=== PATIENT | male | born 1980 | race African-American/Black ===

== ENCOUNTER 2021-03-31 04:20 | Inpatient (IN) | payer MEDICAID, OTHER ==
[~2021-03-31] VITALS: Ht 185.4 cm; Wt 108.3 kg
[~2021-03-31 04:20] MED LIST: ALPR0.5T; IBU800T
[2021-03-31] MEDS ORDERED: SODIUM CHLORIDE 0.9% 1,000 ML IV ONE ×2 (07:00→08:30)
[2021-03-31] MEDS ORDERED: FAMOTIDINE (10MG/ML) 2ML VL IV ONE (07:15)
[2021-03-31 07:27] LABS: Basophils # (auto) 0 10 ^3/uL (0-0.2); Basophils % (auto) 0.7 % (0.0-2.0); Eosinophils # (auto) 0.1 10 ^3/uL (0-0.8); Eosinophils % (auto) 1.5 % (0.0-7.0); Hematocrit 40.4 % (41.0-53.0); Hemoglobin 14.1 g/dL (13.5-17.5); Lymphocytes # (auto) 1.9 10 ^3/uL (0.4-5.4); Lymphocytes % (auto) 41.3 % (10.0-50.0); Mean Corpuscular Hemoglobin 34.8 pg (28.0-32.0); Mean Corpuscular Hgb Conc. 34.9 g/dL (32.0-36.0); Mean Corpuscular Volume 99.6 fL (80.0-100.0); Monocytes # (auto) 0.6 10 ^3/uL (0-1.3); Monocytes % (auto) 13.9 % (0.0-12.0); Neutrophils % (auto) 42.6 % (37.0-80.0); Nucleated Red Blood Cells % 0.2 %; Red Blood Cells 4.05 10^6/uL (4.5-5.90); Red Cell Distribution Width 12.5 % (11.8-14.3); White Blood Cell 4.7 10^3/uL (4.4-10.8)
[2021-03-31 07:42] LABS: Calcium 8.8 mg/dL (8.5-10.1); Potassium 3.8 mmol/L (3.5-5.1)
[2021-03-31 07:45] LABS: Bilirubin, Total 0.5 mg/dL (0.2-1.0); Total Protein 8.1 g/dL (6.4-8.2)
[2021-03-31 07:55] LABS: Amphetamine Screen, Urine NEGATIVE (NEGATIVE); Barbiturate Scree,Urine NEGATIVE (NEGATIVE); Benzodiazephine Screen, Urine NEGATIVE (NEGATIVE); Cannabinoid Screen, Urine NEGATIVE (NEGATIVE); Cocaine Screen, Urine NEGATIVE (NEGATIVE); Opiate Scree,Urine NEGATIVE (NEGATIVE); Phencyclidine Screen, Urine NEGATIVE (NEGATIVE)
[2021-03-31 08:06] LABS: Urine Bacteria NONE SEEN /hpf (None Seen); Urine Blood Negative /uL (Negative); Urine Hyaline Cast FEW /lpf (0 - 2); Urine Mucus FEW (None Seen); Urine Specific Gravity 1.019 (1.001-1.035); Urine WBC 3 /hpf (0 - 3)
[2021-03-31] MEDS ORDERED: MORPHINE SULFATE 4 MG/ML SYR/VIAL ONE (08:20)
[2021-03-31] MEDS ORDERED: ONDANSETRON HCL 4 MG/2 ML VIAL IV ONE ×2 (08:30→10:45)
[2021-03-31] MEDS ORDERED: MORPHINE SULFATE 4 MG/ML SYR/VIAL IV ONE (08:30)
[2021-03-31 08:49] LABS: BUN/Creatinine Ratio 5.7
[2021-03-31] MEDS ORDERED: PANTOPRAZOLE 40 MG/10 ML VIAL INJ IV ONE (10:45)
[2021-03-31] MEDS ORDERED: MEROPENEM 1GM IVPB 100 ML IV ONE (10:45)
[2021-03-31] MEDS ORDERED: SODIUM CHLORIDE 0.9% 1,000 ML IV SCH (10:45)
[2021-03-31] MEDS ORDERED: MORPHINE SULFATE 4 MG/ML SYR/VIAL IV PRN (10:45)
[2021-03-31] MEDS ORDERED: LABETALOL HCL 5 MG/ML 4ML SYRINGE IV ONE (10:45)
[2021-03-31] MEDS ORDERED: MORPHINE SULFATE INJECTION 2 MG/ML SYRG IV PRN ×2 (10:45→11:00)
[2021-03-31] MEDS ORDERED: ONDANSETRON HCL 4 MG/2 ML VIAL IV PRN (10:45)
[2021-03-31] MEDS ORDERED: chlordiazePOXIDE HCL 25 MG CAP PO SCH (10:45)
[2021-03-31] MEDS ORDERED: LACTATED RINGER'S 1,000 ML IV ONE (10:45)
[2021-03-31] MEDS ORDERED: NITROGLYCERIN 0.4 MG SL TAB SL PRN ×2 (10:45→11:00)
[2021-03-31] MEDS ORDERED: ACETAMINOPHEN 325 MG TAB PO PRN (11:00)
[2021-03-31] MEDS ORDERED: PANCREATIC ENZYMES 4200 UNIT CAP PO ONE (11:00)
[2021-03-31] MEDS ORDERED: LORazepam 0.5 MG TAB PO PRN (11:00)
[2021-03-31] MEDS ORDERED: ALUM & MAG HYDROX-SIMETH LIQ(MAALOX) 30 ML PO PRN (11:00)
[2021-03-31] MEDS ORDERED: HYDROcodone-ACET 5/325MG TAB PO PRN (11:00)
[2021-03-31] MEDS ORDERED: SUCRALFATE 1 GM/10 ML ORAL SUSP PO ONE (11:00)
[2021-03-31] MEDS ORDERED: DOCUSATE SOD 100 MG CAP PO PRN (11:00)
[2021-03-31] MEDS ORDERED: BENAZEPRIL HCL 10 MG TAB PO ONE (11:30)
[2021-03-31] MEDS ORDERED: SUCRALFATE 1 GM/10 ML ORAL SUSP PO SCH (11:30)
[2021-03-31] MEDS ORDERED: PANCREATIC ENZYMES 4200 UNIT CAP PO SCH (12:00)
[2021-03-31] MEDS: chlordiazePOXIDE HCL 25 MG CAP PO SCH ×2 (13:28→21:34)
[2021-03-31] MEDS: HYDROmorphone HCL 2 MG/ML VL IV PRN ×2 (15:59→21:55)
[2021-03-31] MEDS ORDERED: HYDROmorphone HCL 2 MG/ML VL ONE (15:59)
[2021-03-31 17:28] VITALS: BP 137/92
[2021-03-31] MEDS: LACTATED RINGER'S 1,000 ML IV SCH (18:13)
[2021-03-31 18:34] LABS: INR 1.07 (0.9-1.15); Partial Thromboplastin Time 27.2 sec (23.6-33.0)
[2021-03-31 20:00] VITALS: BP 153/96
[2021-03-31] MEDS ORDERED: MEROPENEM 1GM IVPB 100 ML IV SCH (20:00)
[2021-03-31 22:00] VITALS: BP 162/84
[2021-03-31] MEDS ORDERED: ATORVASTATIN 20 MG TAB PO SCH (22:00)
[2021-03-31] MEDS: LABETALOL HCL 5 MG/ML 4ML SYRINGE IV PRN (22:50)
[2021-04-01] VITALS (7 sets, daily range): BP systolic 143–169; BP diastolic 91–99
[2021-04-01] MEDS: LACTATED RINGER'S 1,000 ML IV SCH ×3 (01:15→17:03)
[2021-04-01] MEDS: HYDROmorphone HCL 2 MG/ML VL IV PRN ×2 (03:07→21:38)
[2021-04-01] MEDS: chlordiazePOXIDE HCL 25 MG CAP PO SCH ×2 (05:00→17:03)
[2021-04-01 06:54] LABS: Basophils # (auto) 0 10 ^3/uL (0-0.2); Basophils % (auto) 0.3 % (0.0-2.0); Eosinophils # (auto) 0.1 10 ^3/uL (0-0.8); Eosinophils % (auto) 1.6 % (0.0-7.0); Hematocrit 36.3 % (41.0-53.0); Hemoglobin 12.4 g/dL (13.5-17.5); Lymphocytes # (auto) 1.2 10 ^3/uL (0.4-5.4); Lymphocytes % (auto) 27.7 % (10.0-50.0); Mean Corpuscular Hemoglobin 34.6 pg (28.0-32.0); Mean Corpuscular Hgb Conc. 34.3 g/dL (32.0-36.0); Mean Corpuscular Volume 100.9 fL (80.0-100.0); Monocytes # (auto) 0.5 10 ^3/uL (0-1.3); Monocytes % (auto) 11.3 % (0.0-12.0); Neutrophils # (auto) 2.5 10 ^3/uL (1.6-8.6); Neutrophils % (auto) 59.1 % (37.0-80.0); Nucleated Red Blood Cells % 0.1 %; Red Blood Cells 3.59 10^6/uL (4.5-5.90); Red Cell Distribution Width 12.7 % (11.8-14.3); White Blood Cell 4.2 10^3/uL (4.4-10.8)
[2021-04-01 06:55] LABS: Albumin 3.1 g/dL (3.4-5.0); Calcium 8.7 mg/dL (8.5-10.1); Magnesium 1.7 mg/dL (1.6-2.6); Potassium 3.8 mmol/L (3.5-5.1)
[2021-04-01 06:57] LABS: INR 1.06 (0.9-1.15); Partial Thromboplastin Time 26.8 sec (23.6-33.0)
[2021-04-01 07:00] LABS: BUN/Creatinine Ratio 11.4; Bilirubin, Total 0.6 mg/dL (0.2-1.0); Phosphorus 3.4 mg/dL (2.5-4.90); Uric Acid 6.3 mg/dL (3.5-7.2)
[2021-04-01] MEDS: PANTOPRAZOLE 40 MG/10 ML VIAL INJ IV SCH (09:28)
[2021-04-01] MEDS ORDERED: BENAZEPRIL HCL 10 MG TAB PO SCH (10:00)
[2021-04-01] MEDS ORDERED: ASPirin 81 mg TAB PO SCH (10:00)
[2021-04-01] MEDS: THIAMINE IV SCH (12:00)
[2021-04-01] MEDS: MULTIPLE VITAMIN IV SCH (12:00)
[2021-04-01] MEDS: [UNRECOGNIZED DRUG - OTHER] IV SCH (12:00)
[2021-04-01] MEDS: MAGNESIUM SULF IV SCH (12:00)
[2021-04-01] MEDS ORDERED: FOLIC ACID 1 MG TAB PO ONE (12:00)
[2021-04-01] MEDS ORDERED: IOHEXOL 350 MG/ML 100ML IJ ONE (12:13)
[2021-04-01] MEDS: MORPHINE SULFATE 4 MG/ML SYR/VIAL IV PRN (15:15)
[2021-04-01] MEDS: LABETALOL HCL 5 MG/ML 4ML SYRINGE IV PRN (21:50)
[2021-04-02] MEDS: LACTATED RINGER'S 1,000 ML IV SCH (01:15)
[2021-04-02 05:00] VITALS: BP 166/92
[2021-04-02] MEDS: chlordiazePOXIDE HCL 25 MG CAP PO SCH ×2 (05:38→16:55)
[2021-04-02] MEDS: MORPHINE SULFATE 4 MG/ML SYR/VIAL IV PRN ×2 (05:58→21:15)
[2021-04-02] MEDS: LABETALOL HCL 5 MG/ML 4ML SYRINGE IV PRN ×2 (05:59→16:57)
[2021-04-02] MEDS ORDERED: LOSA-69 PO (07:00)
[2021-04-02] MEDS ORDERED: HYDR12.56 PO (07:00)
[2021-04-02 09:03] VITALS: BP 155/102
[2021-04-02] MEDS: D5W/SOD CHLO 0.9% 1,000 ML IV SCH ×2 (09:30→17:30)
[2021-04-02] MEDS ORDERED: MAGNESIUM CITRATE SOLUTION 300 ML BTL PO ONE (09:30)
[2021-04-02] MEDS: FOLIC ACID 1 MG TAB PO SCH (10:19)
[2021-04-02] MEDS: PANTOPRAZOLE 40 MG/10 ML VIAL INJ IV SCH (10:19)
[2021-04-02] MEDS: LOSARTAN POTASSIUM 50 MG TAB PO SCH ×2 (10:19→22:43)
[2021-04-02] MEDS: HCTZ 25 MG TAB PO SCH (10:20)
[2021-04-02] MEDS: MULTIPLE VITAMIN IV SCH (12:00)
[2021-04-02] MEDS: MAGNESIUM SULF IV SCH (12:00)
[2021-04-02] MEDS: [UNRECOGNIZED DRUG - OTHER] IV SCH (12:00)
[2021-04-02] MEDS: THIAMINE IV SCH (12:00)
[2021-04-02 12:44] VITALS: BP 153/107
[2021-04-02 17:30] VITALS: BP 148/114
[2021-04-02 22:00] VITALS: BP 161/94
[2021-04-03] MEDS: LABETALOL HCL 5 MG/ML 4ML SYRINGE IV PRN ×4 (00:16→15:50)
[2021-04-03] MEDS ORDERED: diphenhdrAMINE HCL 25 MG CAP PO ONE (01:15)
[2021-04-03] MEDS: D5W/SOD CHLO 0.9% 1,000 ML IV SCH ×2 (02:33→09:59)
[2021-04-03] MEDS: chlordiazePOXIDE HCL 25 MG CAP PO SCH (04:34)
[2021-04-03 05:00] VITALS: BP 164/92
[2021-04-03 08:00] VITALS: BP 177/105
[2021-04-03] MEDS: LOSARTAN POTASSIUM 50 MG TAB PO SCH ×2 (09:57→22:19)
[2021-04-03] MEDS: HCTZ 25 MG TAB PO SCH (09:58)
[2021-04-03] MEDS: PANTOPRAZOLE 40 MG/10 ML VIAL INJ IV SCH (09:58)
[2021-04-03] MEDS: FOLIC ACID 1 MG TAB PO SCH (09:59)
[2021-04-03 10:51] VITALS: BP 177/105
[2021-04-03 13:21] VITALS: BP 158/105
[2021-04-03] MEDS: [UNRECOGNIZED DRUG - OTHER] IV SCH (13:27)
[2021-04-03] MEDS: MULTIPLE VITAMIN IV SCH (13:27)
[2021-04-03] MEDS: MAGNESIUM SULF IV SCH (13:27)
[2021-04-03] MEDS: THIAMINE IV SCH (13:27)
[2021-04-03 16:00] VITALS: BP 144/107
[2021-04-03 22:00] VITALS: BP 170/104
[2021-04-03] MEDS: MORPHINE SULFATE 4 MG/ML SYR/VIAL IV PRN (22:20)
[2021-04-04 04:48] VITALS: BP 158/97
[2021-04-04] MEDS: LABETALOL HCL 5 MG/ML 4ML SYRINGE IV PRN (06:41)
[2021-04-04] MEDS ORDERED: chlordiazePOXIDE HCL 25 MG CAP PO SCH (07:00)
[2021-04-04] MEDS: LOSARTAN POTASSIUM 50 MG TAB PO SCH (10:46)
[2021-04-04] MEDS: PANTOPRAZOLE 40 MG/10 ML VIAL INJ IV SCH (10:46)
[2021-04-04] MEDS: FOLIC ACID 1 MG TAB PO SCH (10:46)
[2021-04-04] MEDS: HCTZ 25 MG TAB PO SCH (10:47)
[2021-04-04 11:41] VITALS: BP 140/100
== END 2021-04-04 15:40 | disposition home or self-care (01) | DRG 282 ==
LOC: ER 04:20 → TELE 10:34 → TELE-WESTW 17:00
PROVIDERS: ADMIT Hospitalist; ATTEND Family Medicine
DX: K85.20 Alcohol induced acute pancreatitis without necrosis or infection (principal); G92.8 Other toxic encephalopathy; R65.10 Systemic inflammatory response syndrome (SIRS) of non-infectious origin without acute organ dysfunction; E86.0 Dehydration; I16.1 Hypertensive emergency; K29.20 Alcoholic gastritis without bleeding; K21.9 Gastro-esophageal reflux disease without esophagitis; I10 Essential (primary) hypertension; E78.5 Hyperlipidemia, unspecified; Z20.822 Contact with and (suspected) exposure to COVID-19; E66.01 Morbid (severe) obesity due to excess calories; F10.129 Alcohol abuse with intoxication, unspecified; F17.210 Nicotine dependence, cigarettes, uncomplicated; K86.1 Other chronic pancreatitis; Z88.8 Allergy status to other drugs, medicaments and biological substances; Z68.31 Body mass index [BMI] 31.0-31.9, adult; Y90.6 Blood alcohol level of 120-199 mg/100 ml
CPT/HCPCS: 36415; 71275; 74176; 76705; 80053; 80307; 80320; 81001; 82150; 82306; 83036; 83690; 83735; 83880; 84100; 84443; 84484; 84550; 85025; 85379; 85610; 85730; 87040; 87086; 87426; 93005; 93970; 96361; 96365; 96375; C9113; G0378; J2185; J2405; J3490; J7042

== ENCOUNTER 2021-05-19 23:13 | Emergency (ER) | payer MEDICAID ==
[~2021-05-19] VITALS: Ht 185.4 cm; Wt 104.3 kg
[~2021-05-19 23:13] MED LIST changes: +HYDR12.56 PO; +LOSA-69 PO
[2021-05-19 23:49] LABS: Basophils # (auto) 0 10 ^3/uL (0-0.2); Basophils % (auto) 1.1 % (0.0-2.0); Eosinophils # (auto) 0 10 ^3/uL (0-0.8); Eosinophils % (auto) 0.5 % (0.0-7.0); Hematocrit 44.3 % (41.0-53.0); Hemoglobin 15.4 g/dL (13.5-17.5); Lymphocytes # (auto) 2.3 10 ^3/uL (0.4-5.4); Lymphocytes % (auto) 56.7 % (10.0-50.0); Mean Corpuscular Hemoglobin 34.8 pg (28.0-32.0); Mean Corpuscular Hgb Conc. 34.7 g/dL (32.0-36.0); Mean Corpuscular Volume 100.4 fL (80.0-100.0); Monocytes # (auto) 0.4 10 ^3/uL (0-1.3); Monocytes % (auto) 8.8 % (0.0-12.0); Neutrophils # (auto) 1.3 10 ^3/uL (1.6-8.6); Neutrophils % (auto) 32.9 % (37.0-80.0); Nucleated Red Blood Cells % 0.2 %; Red Blood Cells 4.41 10^6/uL (4.5-5.90)
[2021-05-20 00:06] LABS: Albumin 4.2 g/dL (3.4-5.0); Calcium 9.1 mg/dL (8.5-10.1); Potassium 3.4 mmol/L (3.5-5.1)
[2021-05-20 00:11] LABS: BUN/Creatinine Ratio 5.4; Bilirubin, Total 0.6 mg/dL (0.2-1.0); Total Protein 9.2 g/dL (6.4-8.2)
[2021-05-20] MEDS ORDERED: ONDANSETRON ODT 4 MG TAB PO ONE (01:45)
[2021-05-20] MEDS ORDERED: MORPHINE SULFATE INJECTION 2 MG/ML SYRG IM ONE (01:45)
[2021-05-20 02:34] VITALS: BP 136/91
[2021-05-20] MEDS ORDERED: ACETAMINOPHEN 500 MG TAB PO ONE (03:15)
[2021-05-20 03:26] LABS: Lipase 321 U/L (73-393)
== END 2021-05-20 05:11 | disposition home or self-care (01) ==
LOC: ER 23:13
DX: K29.70 Gastritis, unspecified, without bleeding (principal); R74.8 Abnormal levels of other serum enzymes; F10.10 Alcohol abuse, uncomplicated; F17.210 Nicotine dependence, cigarettes, uncomplicated; Z20.822 Contact with and (suspected) exposure to COVID-19
CPT/HCPCS: 36415; 71045; 80053; 83690; 83880; 84484; 85025; 87426; 93005

== ENCOUNTER 2021-08-22 11:29 | Emergency (ER) | payer MEDICAID, OTHER ==
[~2021-08-22] VITALS: Ht 185.4 cm; Wt 103.9 kg
[2021-08-22] MEDS ORDERED: cloNIDine HCL 0.1 MG TAB PO ONE ×2 (11:45→14:00)
[2021-08-22 12:28] LABS: Basophils # (auto) 0 10 ^3/uL (0-0.2); Hemoglobin 13.9 g/dL (13.5-17.5); Monocytes # (auto) 0.3 10 ^3/uL (0-1.3); Neutrophils # (auto) 2.1 10 ^3/uL (1.6-8.6); White Blood Cell 3.7 10^3/uL (4.4-10.8)
[2021-08-22 12:30] LABS: Basophils % (auto) 0.8 % (0.0-2.0); Eosinophils # (auto) 0 10 ^3/uL (0-0.8); Eosinophils % (auto) 1.3 % (0.0-7.0); Hematocrit 39.8 % (41.0-53.0); Lymphocytes # (auto) 1.3 10 ^3/uL (0.4-5.4); Lymphocytes % (auto) 33.6 % (10.0-50.0); Mean Corpuscular Hemoglobin 35.8 pg (28.0-32.0); Mean Corpuscular Hgb Conc. 34.8 g/dL (32.0-36.0); Mean Corpuscular Volume 102.9 fL (80.0-100.0); Monocytes % (auto) 9.2 % (0.0-12.0); Neutrophils % (auto) 55.1 % (37.0-80.0); Nucleated Red Blood Cells % 0.2 %; Red Blood Cells 3.87 10^6/uL (4.5-5.90); Red Cell Distribution Width 12.8 % (11.8-14.3)
[2021-08-22 12:46] LABS: Albumin 3.8 g/dL (3.4-5.0); Calcium 9.5 mg/dL (8.5-10.1); Potassium 3.7 mmol/L (3.5-5.1)
[2021-08-22 12:49] LABS: BUN/Creatinine Ratio 8.9; Bilirubin, Total 0.5 mg/dL (0.2-1.0); Total Protein 8.6 g/dL (6.4-8.2)
[2021-08-22] MEDS ORDERED: cloNIDine HCL 0.1 MG TAB ONE (13:52)
[2021-08-22] MEDS ORDERED: LOSA25TA38 PO (14:12)
[2021-08-22 14:29] VITALS: BP 139/98
[2021-08-22] MEDS ORDERED: HYDR12.56 PO (14:31)
== END 2021-08-22 14:35 | disposition home or self-care (01) ==
LOC: ER 11:29
DX: S09.8XXA Other specified injuries of head, initial encounter (principal); I16.0 Hypertensive urgency; I10 Essential (primary) hypertension; E78.5 Hyperlipidemia, unspecified; F17.210 Nicotine dependence, cigarettes, uncomplicated; W06.XXXA Fall from bed, initial encounter; Y93.89 Activity, other specified; Y92.89 Other specified places as the place of occurrence of the external cause; Y99.8 Other external cause status
CPT/HCPCS: 36415; 70450; 80053; 84484; 85025; 93005

== ENCOUNTER 2021-11-29 01:56 | Emergency (ER) | payer MEDICAID, OTHER ==
[~2021-11-29] VITALS: Ht 185.4 cm; Wt 84.0 kg
[~2021-11-29 01:56] MED LIST changes: +LOSA25TA38 PO
[2021-11-29 02:38] VITALS: BP 133/94
[2021-11-29] MEDS ORDERED: CEPH-509 PO (07:06)
[2021-11-29] MEDS ORDERED: KETO2CRE4 TOP (07:06)
== END 2021-11-29 07:31 | disposition left against medical advice (07) ==
LOC: ER 01:56
DX: B35.3 Tinea pedis (principal)

== ENCOUNTER 2021-12-11 05:36 | Inpatient (IN) | payer MEDICAID ==
[~2021-12-11] VITALS: Ht 185.4 cm; Wt 103.0 kg
[~2021-12-11 05:36] MED LIST changes: +CEPH-509 PO; +KETO2CRE4 TOP
[2021-12-11 06:38] LABS: Basophils # (auto) 0 10 ^3/uL (0-0.2); Eosinophils # (auto) 0.1 10 ^3/uL (0-0.8); Hematocrit 40.3 % (41.0-53.0); Nucleated Red Blood Cells % 0.1 %; White Blood Cell 5.5 10^3/uL (4.4-10.8)
[2021-12-11 06:40] LABS: Basophils % (auto) 0.4 % (0.0-2.0); Eosinophils % (auto) 1.7 % (0.0-7.0); Hemoglobin 13.9 g/dL (13.5-17.5); Lymphocytes % (auto) 18.7 % (10.0-50.0); Mean Corpuscular Hgb Conc. 34.6 g/dL (32.0-36.0); Monocytes # (auto) 0.3 10 ^3/uL (0-1.3); Monocytes % (auto) 6.2 % (0.0-12.0); Red Blood Cells 3.87 10^6/uL (4.5-5.90); Red Cell Distribution Width 12.5 % (11.8-14.3)
[2021-12-11 07:01] LABS: Albumin 3.7 g/dL (3.4-5.0); Calcium 9.7 mg/dL (8.5-10.1); Potassium 3.7 mmol/L (3.5-5.1)
[2021-12-11 07:07] LABS: BUN/Creatinine Ratio 8.6; Total Protein 8.6 g/dL (6.4-8.2)
[2021-12-11] MEDS ORDERED: metroNIDAZOLE 500MG/100ML 100 ML IV ONE (07:30)
[2021-12-11] MEDS ORDERED: cefTRIAXone 1GM/50ML D5W 50 ML IV ONE (07:30)
[2021-12-11] MEDS ORDERED: MORPHINE SULFATE 4 MG/ML SYR/VIAL IV ONE (08:15)
[2021-12-11] MEDS ORDERED: ONDANSETRON HCL 4 MG/2 ML VIAL IV ONE (08:15)
[2021-12-11 08:53] LABS: Urine Bacteria FEW /hpf (None Seen); Urine Blood Negative /uL (Negative); Urine Hyaline Cast FEW /lpf (0 - 2); Urine Mucus FEW (None Seen); Urine Specific Gravity 1.028 (1.001-1.035); Urine WBC 19 /hpf (0 - 3)
[2021-12-11 09:47] LABS: Alcohol, Urine < 3.0 mg/dL (0-10); Amphetamine Screen, Urine NEGATIVE (NEGATIVE); Barbiturate Scree,Urine NEGATIVE (NEGATIVE); Benzodiazephine Screen, Urine NEGATIVE (NEGATIVE); Cannabinoid Screen, Urine NEGATIVE (NEGATIVE); Cocaine Screen, Urine NEGATIVE (NEGATIVE); Opiate Scree,Urine NEGATIVE (NEGATIVE); Phencyclidine Screen, Urine NEGATIVE (NEGATIVE)
[2021-12-11] MEDS ORDERED: hydrALAZINE HCL 20 MG/ML VL IV PRN (10:15)
[2021-12-11] MEDS ORDERED: THIAMINE 100mg/ml INJ (200mg/2ml VIAL) IV ONE (10:15)
[2021-12-11] MEDS ORDERED: ONDANSETRON HCL 4 MG/2 ML VIAL IV PRN (10:15)
[2021-12-11] MEDS: SODIUM CHLORIDE 0.9% 1,000 ML IV SCH ×2 (10:19→18:15)
[2021-12-11] MEDS ORDERED: NICOTINE 7MG/24HR TOPICAL PATCH TD ONE (10:30)
[2021-12-11 10:35] LABS: Triglycerides 78 mg/dL (< 150)
[2021-12-11 10:38] LABS: Cholesterol 203 mg/dL (< 200); HDL Cholesterol 48 mg/dL (40-59); LDL Cholesterol 156 mg/dL (< 100)
[2021-12-11 17:27] VITALS: BP 136/89
[2021-12-11] MEDS: metroNIDAZOLE 500MG/100ML 100 ML IV SCH (17:37)
[2021-12-11] MEDS: MORPHINE SULFATE INJ 2 MG/ml SYRG IV PRN ×2 (19:04→23:00)
[2021-12-11 22:00] VITALS: BP 128/86
[2021-12-12] MEDS: metroNIDAZOLE 500MG/100ML 100 ML IV SCH ×3 (00:59→17:22)
[2021-12-12] MEDS: SODIUM CHLORIDE 0.9% 1,000 ML IV SCH ×3 (02:46→18:15)
[2021-12-12] MEDS: MORPHINE SULFATE INJ 2 MG/ml SYRG IV PRN ×2 (02:47→13:34)
[2021-12-12 05:00] VITALS: BP 137/99
[2021-12-12 05:33] LABS: Basophils # (auto) 0 10 ^3/uL (0-0.2); Hemoglobin 12.3 g/dL (13.5-17.5); Mean Corpuscular Hgb Conc. 35.3 g/dL (32.0-36.0)
[2021-12-12 05:36] LABS: Basophils % (auto) 0.4 % (0.0-2.0); Eosinophils # (auto) 0.2 10 ^3/uL (0-0.8); Eosinophils % (auto) 3.3 % (0.0-7.0); Hematocrit 34.9 % (41.0-53.0); Lymphocytes # (auto) 1.2 10 ^3/uL (0.4-5.4); Lymphocytes % (auto) 25.5 % (10.0-50.0); Mean Corpuscular Hemoglobin 36.5 pg (28.0-32.0); Mean Corpuscular Volume 103.6 fL (80.0-100.0); Monocytes # (auto) 0.5 10 ^3/uL (0-1.3); Monocytes % (auto) 9.9 % (0.0-12.0); Neutrophils # (auto) 2.9 10 ^3/uL (1.6-8.6); Neutrophils % (auto) 60.9 % (37.0-80.0); Nucleated Red Blood Cells % 0.3 %; Red Blood Cells 3.37 10^6/uL (4.5-5.90); Red Cell Distribution Width 12.5 % (11.8-14.3); White Blood Cell 4.8 10^3/uL (4.4-10.8)
[2021-12-12 05:52] LABS: Calcium 9.2 mg/dL (8.5-10.1)
[2021-12-12 05:59] LABS: Albumin 2.8 g/dL (3.4-5.0); BUN/Creatinine Ratio 13.6; Bilirubin, Total 0.6 mg/dL (0.2-1.0); Total Protein 6.8 g/dL (6.4-8.2)
[2021-12-12 09:18] VITALS: BP 128/93
[2021-12-12] MEDS: NICOTINE 7MG/24HR TOPICAL PATCH TD SCH (10:00)
[2021-12-12] MEDS: ENOXAPARIN SOD 40 MG/0.4 ML SYRINGE SC SCH (10:00)
[2021-12-12] MEDS: cefTRIAXone 1GM/50ML D5W 50 ML IV SCH (10:06)
[2021-12-12 15:01] VITALS: BP 153/107
[2021-12-12 16:55] LABS: Cholesterol 173 mg/dL (< 200); Triglycerides 92 mg/dL (< 150)
[2021-12-12 16:58] VITALS: BP 157/101
[2021-12-12 16:58] LABS: HDL Cholesterol 36 mg/dL (40-59); LDL Cholesterol 129 mg/dL (< 100)
[2021-12-12] MEDS: HYDROmorphone HCL 2 MG/ML VL/or syr IV PRN ×2 (18:06→22:20)
[2021-12-12 22:00] VITALS: BP 151/94
[2021-12-13] MEDS: metroNIDAZOLE 500MG/100ML 100 ML IV SCH ×3 (01:58→17:00)
[2021-12-13] MEDS: HYDROmorphone HCL 2 MG/ML VL/or syr IV PRN ×2 (02:05→15:52)
[2021-12-13] MEDS: SODIUM CHLORIDE 0.9% 1,000 ML IV SCH ×4 (02:15→19:02)
[2021-12-13 05:00] VITALS: BP 164/95
[2021-12-13 08:20] VITALS: BP 154/93
[2021-12-13] MEDS: cefTRIAXone 1GM/50ML D5W 50 ML IV SCH (09:00)
[2021-12-13] MEDS: ENOXAPARIN SOD 40 MG/0.4 ML SYRINGE SC SCH (10:00)
[2021-12-13] MEDS: NICOTINE 7MG/24HR TOPICAL PATCH TD SCH (10:00)
[2021-12-13 12:20] VITALS: BP 149/110
[2021-12-13 17:13] VITALS: BP 146/113
[2021-12-13] MEDS ORDERED: LORazepam 0.5 MG TAB PO PRN (17:30)
[2021-12-13] MEDS ORDERED: diphenhdrAMINE HCL 50 MG/1 ML VL IV PRN (17:45)
[2021-12-13 22:00] VITALS: BP 164/108
[2021-12-14] MEDS: SODIUM CHLORIDE 0.9% 1,000 ML IV SCH ×2 (01:45→10:18)
[2021-12-14 05:00] VITALS: BP 158/112
[2021-12-14 08:47] VITALS: BP 155/107
[2021-12-14] MEDS ORDERED: NICOTINE 21MG/24 HR TOPICAL PATCH TD SCH (10:00)
[2021-12-14 11:28] VITALS: BP_SYST 148; BP_SYST 153; BP_DIAS 101; BP_DIAS 107
[2021-12-14 12:30] VITALS: BP 148/101
== END 2021-12-14 12:56 | disposition home or self-care (01) | DRG 282 ==
LOC: ER 05:36 → OVERFLOW 10:11 → EAST 17:00
PROVIDERS: ADMIT Registered Nurse; ATTEND Internal Medicine
DX: K85.20 Alcohol induced acute pancreatitis without necrosis or infection (principal); R16.0 Hepatomegaly, not elsewhere classified; E78.5 Hyperlipidemia, unspecified; F10.20 Alcohol dependence, uncomplicated; R74.01 Elevation of levels of liver transaminase levels; N39.0 Urinary tract infection, site not specified; R80.9 Proteinuria, unspecified; F17.210 Nicotine dependence, cigarettes, uncomplicated; I10 Essential (primary) hypertension; K59.00 Constipation, unspecified; Z20.822 Contact with and (suspected) exposure to COVID-19; Z88.8 Allergy status to other drugs, medicaments and biological substances; Z71.6 Tobacco abuse counseling
CPT/HCPCS: 36415; 74176; 76705; 80053; 80061; 80307; 80320; 81001; 83036; 83605; 83690; 84443; 85025; 87040; 87086; 93005; 96365; 96368; 96375; G0378; J0696; J2405; J3490

== ENCOUNTER 2021-12-29 21:33 | Emergency (ER) | payer MEDICAID ==
[~2021-12-29] VITALS: Ht 185.4 cm; Wt 102.3 kg
[~2021-12-29 21:33] MED LIST changes: -CEPH-509 PO; -IBU800T; -LOSA-69 PO
[2021-12-29 22:26] VITALS: BP 180/113
[2021-12-29] MEDS ORDERED: KETOROLAC TROMETH 30 MG/ML 1ML VIAL IM ONE (22:30)
[2021-12-29 23:04] LABS: Basophils # (auto) 0 10 ^3/uL (0-0.2); Eosinophils # (auto) 0.2 10 ^3/uL (0-0.8); Hemoglobin 13.3 g/dL (13.5-17.5); Lymphocytes # (auto) 1.6 10 ^3/uL (0.4-5.4); Monocytes # (auto) 0.4 10 ^3/uL (0-1.3); White Blood Cell 6.4 10^3/uL (4.4-10.8)
[2021-12-29 23:05] LABS: Basophils % (auto) 0.6 % (0.0-2.0); Eosinophils % (auto) 2.8 % (0.0-7.0); Hematocrit 40.1 % (41.0-53.0); Lymphocytes % (auto) 24.9 % (10.0-50.0); Mean Corpuscular Hemoglobin 34.7 pg (28.0-32.0); Mean Corpuscular Hgb Conc. 33.2 g/dL (32.0-36.0); Mean Corpuscular Volume 104.4 fL (80.0-100.0); Monocytes % (auto) 6.5 % (0.0-12.0); Neutrophils # (auto) 4.2 10 ^3/uL (1.6-8.6); Neutrophils % (auto) 65.2 % (37.0-80.0); Nucleated Red Blood Cells % 0.2 %; Red Blood Cells 3.84 10^6/uL (4.5-5.90); Red Cell Distribution Width 13.1 % (11.8-14.3)
[2021-12-29 23:20] LABS: Albumin 3.3 g/dL (3.4-5.0); Calcium 9.2 mg/dL (8.5-10.1); Potassium 3.7 mmol/L (3.5-5.1)
[2021-12-29 23:29] LABS: BUN/Creatinine Ratio 8.3; Bilirubin, Total 0.4 mg/dL (0.2-1.0); Total Protein 7.7 g/dL (6.4-8.2)
[2021-12-30] MEDS ORDERED: HYDR-4798 PO (01:02)
[2021-12-30] MEDS ORDERED: ONDA-144 PO (01:02)
[2021-12-30] MEDS ORDERED: HYDROcodone-ACET 10/325MG TAB PO ONE (01:15)
== END 2021-12-30 01:31 | disposition home or self-care (01) ==
LOC: ER 21:33
DX: K85.90 Acute pancreatitis without necrosis or infection, unspecified (principal); I10 Essential (primary) hypertension; E78.5 Hyperlipidemia, unspecified; F17.210 Nicotine dependence, cigarettes, uncomplicated; Z79.899 Other long term (current) drug therapy; Z88.8 Allergy status to other drugs, medicaments and biological substances
CPT/HCPCS: 36415; 80053; 83690; 85025; 96372; 99283; J1885

== ENCOUNTER 2022-08-25 07:35 | Emergency (ER) | payer OTHER, MEDICAID ==
[~2022-08-25] VITALS: Ht 182.9 cm; Wt 120.2 kg
[~2022-08-25 07:35] MED LIST changes: +HYDR-4798 PO; -HYDR12.56 PO; +ONDA-144 PO
[2022-08-25] MEDS ORDERED: cloNIDine HCL 0.1 MG TAB PO ONE (08:00)
[2022-08-25] MEDS ORDERED: MORPHINE SULFATE 4 MG/ML SYR/VIAL IV ONE ×2 (08:00→13:30)
[2022-08-25] MEDS ORDERED: ONDANSETRON HCL 4 MG/2 ML VIAL IV ONE ×2 (08:00→13:30)
[2022-08-25] MEDS ORDERED: HYDROcodone-ACET 10/325MG TAB PO ONE (08:00)
[2022-08-25] MEDS ORDERED: SODIUM CHLORIDE 0.9% 1,000 ML IVB ONE (08:00)
[2022-08-25 08:38] LABS: Basophils # (auto) 0 10 ^3/uL (0-0.2); Basophils % (auto) 0.2 % (0.0-2.0); Eosinophils # (auto) 0.1 10 ^3/uL (0-0.8); Eosinophils % (auto) 1.1 % (0.0-7.0); Hemoglobin 16.4 g/dL (13.5-17.5); Lymphocytes # (auto) 1.5 10 ^3/uL (0.4-5.4); Lymphocytes % (auto) 21.5 % (10.0-50.0); Mean Corpuscular Hemoglobin 33.4 pg (28.0-32.0); Mean Corpuscular Volume 95.6 fL (80.0-100.0); Monocytes # (auto) 0.4 10 ^3/uL (0-1.3); Monocytes % (auto) 5.3 % (0.0-12.0); Neutrophils # (auto) 4.9 10 ^3/uL (1.6-8.6); Neutrophils % (auto) 71.9 % (37.0-80.0); Nucleated Red Blood Cells % 0.2 %; Red Blood Cells 4.91 10^6/uL (4.5-5.90); Red Cell Distribution Width 13.3 % (11.8-14.3); White Blood Cell 6.9 10^3/uL (4.4-10.8)
[2022-08-25 08:46] LABS: Urine Bacteria NONE SEEN /hpf (None Seen); Urine Blood Negative /uL (Negative); Urine Mucus FEW (None Seen); Urine Specific Gravity 1.029 (1.001-1.035); Urine WBC <1 /hpf (0 - 3)
[2022-08-25 08:56] LABS: Albumin 4.5 g/dL (3.4-5.0); Anion Gap 8 (5-15); Blood Alcohol < 3.0 mg/dL (0-5); Blood Urea Nitrogen 12 mg/dL (7-18); Calcium 9.8 mg/dL (8.5-10.1); Carbon Dioxide 31 mmol/L (21-32); Chloride 101 mmol/L (98-107); Glucose 140 mg/dL (74-106); Potassium 3.7 mmol/L (3.5-5.1); Sodium 140 mmol/L (136-145)
[2022-08-25 09:05] LABS: Alanine Aminotransferase 54 U/L (16-61); Alkaline Phosphatase 76 U/L (45-117); Aspartate Aminotransferase 63 U/L (15-37); BUN/Creatinine Ratio 9.6 (10.0-20.0); Bilirubin, Total 0.5 mg/dL (0.2-1.0); GFR African American 81 mL/min; GFR Non-African American 67 mL/min; Lipase 4894 U/L (73-393); Total Protein 7.8 g/dL (6.4-8.2)
[2022-08-25] MEDS ORDERED: cefTRIAXone 1GM/50ML D5W 50 ML IV ONE (09:30)
[2022-08-25] MEDS ORDERED: metroNIDAZOLE 500MG/100ML 100 ML IV ONE (09:30)
[2022-08-25] MEDS ORDERED: LABETALOL HCL 5 MG/ML 4ML SYRINGE IV ONE (10:45)
[2022-08-25] MEDS ORDERED: hydrALAZINE HCL 20 MG/ML VL IV ONE (12:00)
[2022-08-25 14:20] VITALS: BP 145/79
== END 2022-08-25 14:44 | disposition short-term general hospital (02) ==
LOC: ER 07:35
DX: R10.13 Epigastric pain (principal); K85.80 Other acute pancreatitis without necrosis or infection; F41.9 Anxiety disorder, unspecified; E78.5 Hyperlipidemia, unspecified; I10 Essential (primary) hypertension; F17.210 Nicotine dependence, cigarettes, uncomplicated; F10.90 Alcohol use, unspecified, uncomplicated; Z88.8 Allergy status to other drugs, medicaments and biological substances; Z79.899 Other long term (current) drug therapy; Z20.822 Contact with and (suspected) exposure to COVID-19
CPT/HCPCS: 36415; 74176; 80053; 80320; 81001; 83605; 83690; 84484; 85025; 87040; 87426; 96361; 96365; 96368; 96375; 96376; 99285; J0360; J0696; J2270; J2405; J3490; J7030